=== PATIENT | male | born 1955 | race Caucasian/White ===

== ENCOUNTER → 2019-05-25 | Outpatient (CLI) | payer BC | LOC: GMAE 10:53 | PROVIDERS: ATTEND Family Medicine | DX: Z00.01 Encounter for general adult medical examination with abnormal findings (principal); M79.10 Myalgia, unspecified site ==

== ENCOUNTER 2019-09-16 05:26 | Day surgery (SDC) | payer BC ==
[2019-09-16] MEDS ORDERED: LACTATED RINGERS 1,000 ML ONE (06:59)
[2019-09-16] MEDS ORDERED: LIDOCAINE 1% 10 ML VIAL INJ ONE (07:00)
[2019-09-16] MEDS ORDERED: PROPOFOL 200 MG/20 ML VIAL IV ONE (07:00)
[2019-09-16] MEDS ORDERED: LACTATED RINGERS 1,000 ML IVS ONE (07:38)
[2019-09-16] MEDS ORDERED: MIDAZOLAM INJ 2 MG/2 ML VIAL ONE (08:06)
--- NOTE | 2019-09-16 08:48 | OP ---
DATE OF PROCEDURE: 09/16/19 PREOPERATIVE DIAGNOSIS: 1. This is a 63-year-old for screening colonoscopy. POSTOPERATIVE DIAGNOSIS: 1. This is a 63-year-old for screening colonoscopy. PROCEDURE: 1. Colonoscopy to cecum. SURGEON: Sagar Patel MD ANESTHESIA: General. FINDINGS: Normal colon. COMPLICATIONS: None. PLAN: Continue routine screenings. INDICATION: As stated. PROCEDURE: General anesthesia was induced in the lateral position. Digital rectal exam was normal. The prostate was normal. The colonoscope was inserted without difficulty. With minimal difficulty, the cecum was cannulated and identified by the appendiceal orifice and the ileocecal valve. Upon withdrawal, no significant polyps were seen. The patient tolerated the procedure. It was a good prep. He was awakened and taken to Recovery to be discharged. #[id number] MTDD
[2019-09-16 09:06] VITALS: TEMP 97.7
[2019-09-16 11:02] VITALS: BP 107/78; O2SAT 97
== END 2019-09-16 09:12 | disposition home or self-care (01) ==
LOC: AMB 05:26
PROVIDERS: ATTEND Surgery
DX: Z12.11 Encounter for screening for malignant neoplasm of colon (principal); K59.00 Constipation, unspecified; I10 Essential (primary) hypertension; E78.00 Pure hypercholesterolemia, unspecified; Z88.0 Allergy status to penicillin; Z79.899 Other long term (current) drug therapy
CPT/HCPCS: 00812; 45378; J2250; J3490; J7120

== ENCOUNTER → 2020-07-26 | Outpatient (CLI) | payer BC | LOC: GMAE 10:35 | PROVIDERS: ATTEND Family Medicine | DX: Z00.00 Encounter for general adult medical examination without abnormal findings (principal) ==